=== PATIENT | female | born 1955 | race African-American/Black ===

== ENCOUNTER → 2018-03-03 | Outpatient (CLI) | payer OTHER ==
[~2018-03-03] MED LIST: AMIO200T33 PO; CAR125T PO; FUR40T GT; LAC30LQ GT; POT20T PO; SENN8.6C PO; WARF7.5T PO
== END | disposition home or self-care (01) ==
LOC: LAB 12:37
PROVIDERS: ATTEND Physician Assistant
DX: Z20.9 Contact with and (suspected) exposure to unspecified communicable disease (principal)
CPT/HCPCS: 36415; 86706; 86735; 86762; 86765; 86787